=== PATIENT | female | born 1975 | race Caucasian/White ===

== ENCOUNTER 2023-04-18 09:41 | Emergency (ER) | payer OTHER, SELFPAY ==
[2023-04-18 10:19] VITALS: BP 138/84; PULSE 82; RESP 16; TEMP 36.4; O2SAT 98
--- NOTE | 2023-04-18 10:54 | ED.URI ---
HPI - URI/Sore Throat General Chief Complaint: Upper Respiratory Infection Stated Complaint: sorethroat Source: patient, family and RN notes reviewed History of Present Illness HPI Narrative: 47 yo F presents to urgent care with son at side. Pt presents with complaints of nausea and JUÁREZ since yesterday. Pt states she has vomited 2-3x earlier this morning. Reports throat pain but states it is located lower in her throat. Pt's son at side with similar symptoms who tested negative for strep. Denies any abdominal pain, diarrhea, chest pain, SOB, ear pain, or other complaints. Related Data Home Medications Medication Instructions Recorded Confirmed diclofenac sodium 75 mg 75 mg PO BID 04/18/23 04/18/23 tablet,delayed release metformin 500 mg tablet,extended 1,000 mg PO DAILY 04/18/23 04/18/23 release 24 hr metoprolol tartrate 25 mg tablet 25 mg PO DAILY 04/18/23 04/18/23 omeprazole 20 mg capsule,delayed 20 mg PO DAILY 04/18/23 04/18/23 release Allergies Allergy/AdvReac Type Severity Reaction Status Date / Time morphine AdvReac Intermediate Hypotension Verified 04/18/23 10:29 Review of Systems Review of Systems: Pertinent positives and pertinent negatives per HPI. [facility] Family History Family History (Updated 04/17/14 @ 07:13 by DOCTOR UNKNOWN) Father Family history of arthritis Family history of type 2 diabetes mellitus Social History Social History Smoking status: Never smoker Second hand tobacco smoke exposure: Yes Alcohol intake: current Substance use type: marijuana Comments At the time of my signature, I reviewed and agree with the nursing past medical, surgical, social, and family history. There is no relevant family history pertinent to the patient complaint. Exam Narrative: GENERAL: This is a well-nourished, well-developed patient, in no apparent distress. HEAD: normocephalic, atraumatic. EYES: Sclera clear/white. Vision is grossly intact. EARS: External ears normal, auditory canals clear and without drainage, TMs normal without perforation. Hearing grossly intact. NOSE: External nose normal with no obvious nasal discharge, nares without redness, no rhinorrhea. THROAT: Mucous membranes moist, posterior pharynx clear. NECK: Neck supple, non-tender without lymphadenopathy, masses or thyromegaly. CARDIOVASCULAR: Regular rate and rhythm without murmurs, gallops, or rubs. RESPIRATORY: Clear to auscultation. Breath sounds equal bilaterally. No wheezes, rales, or rhonchi. GASTROINTESTINAL: Abdomen soft, non-tender, nondistended. Bowel sounds are active. No hepato-splenomegaly, or palpable masses. No guarding. SKIN: warm, intact with no suspicious lesions or rash, good texture and turgor. NEURO: awake, alert, and oriented to person, place and time. There were no obvious focal neurologic abnormalities. Course Course Level of Care: Express Care Visit Vital Signs Vital signs: Vital Signs Temperature 97.5 F L 04/18/23 10:19 Pulse Rate 82 04/18/23 10:19 Respiratory Rate 16 04/18/23 10:19 Blood Pressure 138/84 04/18/23 10:19 Pulse Oximetry 98 04/18/23 10:19 Oxygen Delivery Room Air 04/18/23 10:19 Temperature 97.5 F L 04/18/23 10:19 Pulse Rate 82 04/18/23 10:19 Respiratory Rate 16 04/18/23 10:19 Blood Pressure 138/84 04/18/23 10:19 Pulse Oximetry 98 04/18/23 10:19 Oxygen Delivery Room Air 04/18/23 10:19 reviewed MDM - URI/Sore Throat MDM Narrative Medical decision making narrative: Viral illness may last between 7-21 days; antibiotics do not cure viral illness and are NOT recommended at this time. Also, recommend symptomatic treatment includes: rest, fluids, and increase humidity of the air at home. Recommend Acetaminophen as directed on the bottle to reduce fever, pain, headache. Please schedule a follow-up visit with your personal physician for further evaluation and treatment within 3-5days. If your symptoms persist, change or
== END 2023-04-18 10:57 | disposition home or self-care (01) ==
PROVIDERS: Emergency Provider Nurse Practitioner Family; PCP Physician Assistant
DX: B34.9 Viral infection, unspecified (principal); F12.90 Cannabis use, unspecified, uncomplicated; I48.91 Unspecified atrial fibrillation; I10 Essential (primary) hypertension; Z86.16 Personal history of COVID-19; E11.9 Type 2 diabetes mellitus without complications; Z79.84 Long term (current) use of oral hypoglycemic drugs
CPT/HCPCS: 99203; G0463